=== PATIENT | male | born 1945 | race Caucasian/White ===

== ENCOUNTER → 2023-01-27 14:19 | Outpatient (REF) | payer MEDICARE, OTHER, SELFPAY | LOC: WOUND 14:19 | PROVIDERS: ATTENDING PHYSICIAN Surgery Plastic and Reconstructive Surgery; REFERRING PHYSICIAN Family Medicine | DX: L97.822 Non-pressure chronic ulcer of other part of left lower leg with fat layer exposed (principal); S81.812D Laceration without foreign body, left lower leg, subsequent encounter; X58.XXXD Exposure to other specified factors, subsequent encounter; Z79.01 Long term (current) use of anticoagulants | CPT/HCPCS: 97597; 97598; 99212 ==

== ENCOUNTER → 2023-04-14 15:23 | Outpatient (REF) | payer MEDICARE, OTHER, SELFPAY ==
[2023-04-14 16:36] LABS: % Basophils 0.5 % (0-2); % Eosinophils 1.4 % (0-6); % Immature Granulocytes 0.2 % (0-0.5); % Lymphocytes 28.9 % (20.5-51.1); % Monocytes 7.4 % (1.7-9.3); % Neutrophils 61.6 % (42.2-75.2); Absolute Eosinophils 0.1 10^3/uL (0-0.7); Absolute Lymphocytes 1.8 10^3/uL (1.2-3.4); Absolute Monocytes 0.5 10^3/uL (0.1-0.6); Absolute Neutrophils 3.9 10^3/uL (1.4-6.5); Hematocrit 35.4 % (39.0-52.0); Hemoglobin 11.4 g/dL (13.0-18.0); Mean Corp Hgb Conc. 32.2 g/dL (33.0-37.0); Mean Corpuscular Hgb 30.7 pg (27.0-31.0); Mean Corpuscular Volume 95.4 fL (80.0-94.0); Mean Platelet Volume 10.9 fL (7.4-10.4); Nucleated Red Blood Cells % 0 % (-); Platelet Count 182 10^3/uL (130-400); Red Blood Cell Count 3.71 10^6/uL (4.70-6.10); Red Cell Dist. Width 15.3 % (11.5-14.5); White Blood Cell Count 6.4 10^3/uL (4.8-10.8)
[2023-04-14 16:45] LABS: Erythrocyte Sed Rate 19 mm/hour (0-20)
[2023-04-14 16:47] LABS: ALT (SGPT) 21 U/L (0-50); AST (SGOT) 24 U/L (17-59); Albumin 3.7 g/dl (3.5-5.0); Alkaline Phosphatase 66 U/L (38-126); Blood Urea Nitrogen 24 mg/dl (9-20); Calcium 9.6 mg/dl (8.4-10.2); Carbon Dioxide 27 mmol/L (22-30); Chloride 101 mmol/L (98-107); Glucose 89 mg/dl (70-99); Potassium 4.7 mmol/L (3.5-5.1); Sodium 136 mmol/L (135-145); Total Bilirubin 0.6 mg/dl (0.2-1.3); Total Protein 6.1 g/dl (6.3-8.2); eGFR 51.77
[2023-04-14 16:56] LABS: Total Iron Binding Capacity 462 ug/dl (261-462)
[2023-04-14 17:17] LABS: Hepatitis B Surface Antigen Negative (Negative)
[2023-04-14 17:35] LABS: Hepatitis B Core Ab, Total Reactive (Negative); Hepatitis B Surface Antibody Negative
[2023-04-14 17:38] LABS: Vitamin B12 274 pg/ml (239-931)
[2023-04-16 22:22] LABS: Vitamin D 1,25 Dihydroxy 35.7 pg/mL (19.9-79.3)
== END ==
LOC: REG 15:23
PROVIDERS: ATTENDING PHYSICIAN Internal Medicine Gastroenterology; FAMILY PHYSICIAN Nurse Practitioner Adult Health
DX: K50.90 Crohn's disease, unspecified, without complications (principal)
CPT/HCPCS: 36415; 80053; 82607; 82652; 82728; 83550; 85025; 85652; 86140; 86704; 86706; 87340

== ENCOUNTER → 2023-08-18 16:11 | Outpatient (REF) | payer MEDICARE, OTHER, SELFPAY | LOC: RAD 16:11 | PROVIDERS: ATTENDING PHYSICIAN Internal Medicine Rheumatology; FAMILY PHYSICIAN Family Medicine | DX: M15.9 Polyosteoarthritis, unspecified (principal) | CPT/HCPCS: 73523 ==

== ENCOUNTER → 2023-08-24 12:33 | Outpatient (REF) | payer MEDICARE, OTHER, SELFPAY | LOC: WOUND 12:33 | PROVIDERS: ATTENDING PHYSICIAN Surgery; FAMILY PHYSICIAN Family Medicine | DX: L97.329 Non-pressure chronic ulcer of left ankle with unspecified severity (principal); N18.31 Chronic kidney disease, stage 3a; K50.90 Crohn's disease, unspecified, without complications; Z79.01 Long term (current) use of anticoagulants | CPT/HCPCS: 99213 ==

== ENCOUNTER → 2023-10-13 09:31 | Outpatient (REF) | payer MEDICARE, OTHER, SELFPAY ==
[2023-10-13 10:12] LABS: % Basophils 0.3 % (0-2); % Immature Granulocytes 0.3 % (0-0.5); % Lymphocytes 27.7 % (20.5-51.1); % Monocytes 8.2 % (1.7-9.3); % Neutrophils 62.5 % (42.2-75.2); Absolute Eosinophils 0.1 10^3/uL (0-0.7); Absolute Lymphocytes 2.4 10^3/uL (1.2-3.4); Absolute Monocytes 0.7 10^3/uL (0.1-0.6); Absolute Neutrophils 5.5 10^3/uL (1.4-6.5); Hematocrit 37.3 % (39.0-52.0); Hemoglobin 12.5 g/dL (13.0-18.0); Mean Corp Hgb Conc. 33.5 g/dL (33.0-37.0); Mean Corpuscular Volume 92.6 fL (80.0-94.0); Mean Platelet Volume 10.2 fL (7.4-10.4); Nucleated Red Blood Cells % 0 % (-); Platelet Count 188 10^3/uL (130-400); Red Blood Cell Count 4.03 10^6/uL (4.70-6.10); Red Cell Dist. Width 13.8 % (11.5-14.5); White Blood Cell Count 8.8 10^3/uL (4.8-10.8)
[2023-10-13 10:34] LABS: Protein/creatinine Ratio 0.1; Urine Protein 5 mg/dl
[2023-10-13 10:36] LABS: ALT (SGPT) 21 U/L (0-50); AST (SGOT) 24 U/L (17-59); Albumin 4.3 g/dl (3.5-5.0); Alkaline Phosphatase 67 U/L (38-126); Blood Urea Nitrogen 30 mg/dl (9-20); Calcium 10.3 mg/dl (8.4-10.2); Carbon Dioxide 23 mmol/L (22-30); Chloride 105 mmol/L (98-107); Direct Bilirubin 0.2 mg/dl (0.0-0.4); Glucose 105 mg/dl (70-99); Iron 58 ug/dl (49-181); Phosphorus 3.8 mg/dl (2.5-4.5); Potassium 4.8 mmol/L (3.5-5.1); Sodium 137 mmol/L (135-145); Total Bilirubin 0.4 mg/dl (0.2-1.3); Total Protein 6.6 g/dl (6.3-8.2); eGFR 56.58
[2023-10-13 10:40] LABS: C-Reactive Protein < 5.00 mg/L (0.0-10.00)
[2023-10-13 10:46] LABS: Percent Saturation 11 % (20-50); Total Iron Binding Capacity 484 ug/dl (261-462)
[2023-10-13 10:52] LABS: Microalbumin, Random Urine <0.6 mg/dl (0.6-1.7)
[2023-10-13 11:11] LABS: Erythrocyte Sed Rate 18 mm/hour (0-20)
[2023-10-13 11:16] LABS: Ferritin 19.4 ng/ml (17.9-464.0)
[2023-10-13 18:10] LABS: Intact PTH 52.4 pg/ml (13.6-85.8)
[2023-10-15 15:24] LABS: Quantiferon Mitogen minus NIL 9.92 IU/mL; Quantiferon NIL 0.08 IU/mL; Quantiferon Plus TB2 minus NIL 0.02 IU/mL (<=0.34); Quantiferon TB Gold Plus Negative (Negative)
== END ==
LOC: REG 09:31
PROVIDERS: ATTENDING PHYSICIAN Internal Medicine Gastroenterology; FAMILY PHYSICIAN Family Medicine
DX: K50.812 Crohn's disease of both small and large intestine with intestinal obstruction (principal); N18.31 Chronic kidney disease, stage 3a
CPT/HCPCS: 36415; 80053; 82043; 82248; 82570; 82728; 83540; 83550; 83970; 84100; 84156; 85025; 85652; 86140; 86480

== ENCOUNTER → 2023-11-09 15:54 | Outpatient (REF) | payer MEDICARE, OTHER, SELFPAY ==
[2023-11-09 14:40] LABS: % Basophils 0.7 % (0-2); % Eosinophils 1.4 % (0-6); % Immature Granulocytes 0.4 % (0-0.5); % Lymphocytes 30.9 % (20.5-51.1); % Monocytes 8.8 % (1.7-9.3); % Neutrophils 57.8 % (42.2-75.2); Absolute Eosinophils 0.1 10^3/uL (0-0.7); Absolute Lymphocytes 1.8 10^3/uL (1.2-3.4); Absolute Monocytes 0.5 10^3/uL (0.1-0.6); Absolute Neutrophils 3.3 10^3/uL (1.4-6.5); Hematocrit 33.6 % (39.0-52.0); Hemoglobin 11.2 g/dL (13.0-18.0); Mean Corp Hgb Conc. 33.3 g/dL (33.0-37.0); Mean Corpuscular Hgb 30.2 pg (27.0-31.0); Mean Corpuscular Volume 90.6 fL (80.0-94.0); Mean Platelet Volume 9.5 fL (7.4-10.4); Nucleated Red Blood Cells % 0 % (-); Platelet Count 172 10^3/uL (130-400); Red Blood Cell Count 3.71 10^6/uL (4.70-6.10); Red Cell Dist. Width 13.8 % (11.5-14.5); White Blood Cell Count 5.7 10^3/uL (4.8-10.8)
== END ==
LOC: OIDL 15:54
PROVIDERS: ATTENDING PHYSICIAN Nurse Practitioner Adult Health
DX: I82.431 Acute embolism and thrombosis of right popliteal vein (principal)
CPT/HCPCS: 85025

== ENCOUNTER → 2023-12-21 10:29 | Outpatient (REF) | payer MEDICARE, OTHER, SELFPAY ==
[2023-12-21 11:16] LABS: % Basophils 0.7 % (0-2); % Eosinophils 1.9 % (0-6); % Immature Granulocytes 0.3 % (0-0.5); % Lymphocytes 32.1 % (20.5-51.1); % Monocytes 7.4 % (1.7-9.3); % Neutrophils 57.6 % (42.2-75.2); Absolute Basophils 0.1 10^3/uL (0-0.2); Absolute Eosinophils 0.1 10^3/uL (0-0.7); Absolute Lymphocytes 2.3 10^3/uL (1.2-3.4); Absolute Monocytes 0.5 10^3/uL (0.1-0.6); Absolute Neutrophils 4.1 10^3/uL (1.4-6.5); Hematocrit 39.2 % (39.0-52.0); Mean Corp Hgb Conc. 33.2 g/dL (33.0-37.0); Mean Corpuscular Volume 93.6 fL (80.0-94.0); Mean Platelet Volume 10.1 fL (7.4-10.4); Nucleated Red Blood Cells % 0 % (-); Platelet Count 175 10^3/uL (130-400); Red Blood Cell Count 4.19 10^6/uL (4.70-6.10); Red Cell Dist. Width 14.5 % (11.5-14.5)
[2023-12-21 12:01] LABS: Iron 124 ug/dl (49-181)
[2023-12-21 12:10] LABS: Percent Saturation 33 % (20-50); Total Iron Binding Capacity 375 ug/dl (261-462)
[2023-12-21 12:36] LABS: Ferritin 91.6 ng/ml (17.9-464.0)
== END ==
LOC: REG 10:29
PROVIDERS: ATTENDING PHYSICIAN Internal Medicine Hematology & Oncology; FAMILY PHYSICIAN Family Medicine
DX: I82.431 Acute embolism and thrombosis of right popliteal vein (principal); I82.511 Chronic embolism and thrombosis of right femoral vein; D50.9 Iron deficiency anemia, unspecified
CPT/HCPCS: 36415; 82728; 83540; 83550; 85025

== ENCOUNTER → 2024-01-25 10:39 | Outpatient (REF) | payer MEDICARE, OTHER, SELFPAY ==
[2024-01-25 12:11] LABS: % Basophils 0.4 % (0-2); % Immature Granulocytes 0.1 % (0-0.5); % Lymphocytes 31.2 % (20.5-51.1); % Monocytes 7.8 % (1.7-9.3); % Neutrophils 59.5 % (42.2-75.2); Absolute Eosinophils 0.1 10^3/uL (0-0.7); Absolute Lymphocytes 2.2 10^3/uL (1.2-3.4); Absolute Monocytes 0.5 10^3/uL (0.1-0.6); Absolute Neutrophils 4.1 10^3/uL (1.4-6.5); Hematocrit 41.5 % (39.0-52.0); Hemoglobin 13.6 g/dL (13.0-18.0); Mean Corp Hgb Conc. 32.8 g/dL (33.0-37.0); Mean Corpuscular Hgb 32.2 pg (27.0-31.0); Mean Corpuscular Volume 98.1 fL (80.0-94.0); Mean Platelet Volume 10.2 fL (7.4-10.4); Nucleated Red Blood Cells % 0 % (-); Platelet Count 173 10^3/uL (130-400); Red Blood Cell Count 4.23 10^6/uL (4.70-6.10); Red Cell Dist. Width 14.2 % (11.5-14.5)
[2024-01-25 12:50] LABS: Erythrocyte Sed Rate 16 mm/hour (0-20)
[2024-01-25 13:19] LABS: Ferritin 80.8 ng/ml (17.9-464.0)
[2024-01-25 13:33] LABS: Vitamin B12 235 pg/ml (239-931)
[2024-01-25 18:23] LABS: ALT (SGPT) 22 U/L (0-50); AST (SGOT) 23 U/L (17-59); Albumin 4.5 g/dl (3.5-5.0); Alkaline Phosphatase 75 U/L (38-126); Blood Urea Nitrogen 35 mg/dl (9-20); Calcium 9.9 mg/dl (8.4-10.2); Carbon Dioxide 22 mmol/L (22-30); Chloride 105 mmol/L (98-107); Direct Bilirubin 0.2 mg/dl (0.0-0.4); Glucose 102 mg/dl (70-99); Iron 79 ug/dl (49-181); Potassium 4.7 mmol/L (3.5-5.1); Sodium 142 mmol/L (135-145); Total Bilirubin 0.5 mg/dl (0.2-1.3); Total Protein 7.1 g/dl (6.3-8.2); eGFR 47.65
[2024-01-25 18:33] LABS: Percent Saturation 18 % (20-50); Total Iron Binding Capacity 428 ug/dl (261-462)
== END ==
LOC: REG 10:39
PROVIDERS: ATTENDING PHYSICIAN Internal Medicine Gastroenterology; FAMILY PHYSICIAN Family Medicine
DX: K50.812 Crohn's disease of both small and large intestine with intestinal obstruction (principal); K21.9 Gastro-esophageal reflux disease without esophagitis; D51.9 Vitamin B12 deficiency anemia, unspecified
CPT/HCPCS: 36415; 80053; 82248; 82607; 82728; 83540; 83550; 85025; 85652; 86140

== ENCOUNTER → 2024-05-19 13:48 | Outpatient (REF) | payer MEDICARE, OTHER, SELFPAY ==
[2024-05-19 14:41] LABS: % Basophils 0.5 % (0-2); % Eosinophils 2.3 % (0-6); % Immature Granulocytes 0.6 % (0-0.5); % Lymphocytes 24.6 % (20.5-51.1); % Monocytes 7.3 % (1.7-9.3); % Neutrophils 64.7 % (42.2-75.2); Absolute Eosinophils 0.1 10^3/uL (0-0.7); Absolute Lymphocytes 1.5 10^3/uL (1.2-3.4); Absolute Monocytes 0.5 10^3/uL (0.1-0.6); Hematocrit 39.4 % (39.0-52.0); Hemoglobin 12.8 g/dL (13.0-18.0); Mean Corp Hgb Conc. 32.5 g/dL (33.0-37.0); Mean Corpuscular Hgb 31.2 pg (27.0-31.0); Mean Corpuscular Volume 96.1 fL (80.0-94.0); Mean Platelet Volume 9.9 fL (7.4-10.4); Nucleated Red Blood Cells % 0 % (-); Platelet Count 176 10^3/uL (130-400); Red Cell Dist. Width 13.3 % (11.5-14.5); White Blood Cell Count 6.2 10^3/uL (4.8-10.8)
[2024-05-19 14:52] LABS: Erythrocyte Sed Rate 9 mm/hour (0-20)
[2024-05-19 15:05] LABS: ALT (SGPT) 17 U/L (0-50); AST (SGOT) 21 U/L (17-59); Albumin 3.8 g/dl (3.5-5.0); Alkaline Phosphatase 72 U/L (38-126); Blood Urea Nitrogen 19 mg/dl (9-20); Carbon Dioxide 28 mmol/L (22-30); Chloride 108 mmol/L (98-107); Direct Bilirubin 0.2 mg/dl (0.0-0.4); Glucose 93 mg/dl (70-99); Iron 132 ug/dl (49-181); Potassium 5.1 mmol/L (3.5-5.1); Sodium 141 mmol/L (135-145); Total Bilirubin 0.5 mg/dl (0.2-1.3); Total Protein 6.4 g/dl (6.3-8.2); eGFR 47.36
[2024-05-19 15:15] LABS: Percent Saturation 30 % (20-50); Total Iron Binding Capacity 439 ug/dl (261-462)
[2024-05-19 15:45] LABS: Ferritin 24.7 ng/ml (17.9-464.0)
== END ==
LOC: REG 13:48
PROVIDERS: ATTENDING PHYSICIAN Internal Medicine Gastroenterology; FAMILY PHYSICIAN Family Medicine
DX: K50.812 Crohn's disease of both small and large intestine with intestinal obstruction (principal)
CPT/HCPCS: 36415; 80053; 82248; 82728; 83540; 83550; 85025; 85652; 86140

== ENCOUNTER 2024-08-23 19:23 | Emergency (ER) | payer MEDICARE, OTHER, SELFPAY ==
[2024-08-23 19:25] VITALS: BP 163/90
--- NOTE | 2024-08-23 21:49 | ED.GENMED ---
History of Present Illness
General
Chief Complaint: Head Injury
Source: patient
Exam Limitations: none
Time Seen by Provider: 08/23/24 21:33
History of Present Illness
History of Present Illness:
79yoM with a history of DVT on Xarelto, hypertension, and Crohn's disease presenting for evaluation after a fall this evening. Patient slipped on metal steps and fell. He hit his head against the wall. There was no loss of consciousness. He
currently reports some neck pain. He received multiple skin tears during the fall. He denies any dizziness, vomiting, chest pain, abdominal pain, back pain. Tetanus shot is reported to be up to date.
Past History
Past History
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
Crohn's disease status post small bowel obstruction, stricture, colon resection) and Other (DVT right lower extremity January 2018, treated with 6 month course of Xarelto)
ED Past Surgical History: Other (Crohn's disease status post small bowel obstruction due to Crohn's ileitis, transverse colonic stricture, ileal resection, right hemicolectomy in 1994, cystoscopy with stone extraction, bilateral cataract surgery,
pacemaker implant secondary to sick sinus syndrome in 2005)
Social History
Tobacco: Non-smoker
Alcohol: Occasional
Drug: None
Personal:
Living: with family
Employment: Retired
Family History
Family History: Other (Father with gastric cancer at 75-year-old, mother at 7 years old with CVA)
Phy Exam
General Physical Exam
General Presentation: well appearing and no apparent distress
General Skin: warm and dry
General Habitus: normal
General Mental: alert
ENT Exam
ENT Exam: other (Small abrasion to R forehead. No other external signs of head trauma. +Tenderness to cervical region. No step-offs and ROM intact.)
Pulmonary Exam
Pulmonary Exam: lungs clear, no respiratory distress, no rales, chest non tender, no crackles, no rhonchi and no wheezing
Gastrointestinal Exam
Gastrointestinal Exam: non tender, soft and non distended
Neurological Exam
Neurological Exam: alert
Abi Coma Scale
Eye Opening: Spontaneous
Verbal Response: Oriented
Motor Response: Obeys Commands
GCS Total Score: 15
Skin Exam
Skin Exam: warm/dry and other (Multiple skin tears noted to extremities. Two largest are in R palm and R lower leg. R lower leg wound is gaping.)
Psychiatric Exam
Psychiatric Exam: normal mood/affect
Course
Orders/Labs/Results
Orders:
Orders
08/23/24 19:27
CT Head W/o Iv Contrast Urgent
Comment:
Reason For Exam: fall +thinners head strike
08/23/24 21:45
CT Cervical Spine W/o Iv Contr Urgent
Comment:
Reason For Exam: fall, neck pain
Vital Signs
Initial and Last Documented VS:
Initial Vital Signs
Temp Pulse Resp BP Pulse Ox
97.8 F 96 15 163/90 100
08/23/24 19:25 08/23/24 19:25 08/23/24 19:25 08/23/24 19:25 08/23/24 19:25
Last Documented Vital Signs
Temp Pulse Resp BP Pulse Ox
97.8 F 67 15 164/82 100
08/23/24 19:25 08/23/24 23:26 08/23/24 19:25 08/23/24 23:26 08/23/24 21:52
Procedures
Laceration Closure
Right Lower Leg:
Status of Wound: clean
Size of Wound in cm: 6
Description of Wound Edges: flap-well vascularized
Preparation: cleaned with saline
Anesthesia: 1% Lidocaine with epi
Wound exploration: explored to base- no FB
Type of Closure: single layer closure
Skin Closure Material: 4-0 nylon
Number of sutures: 6
Additional information:
6 nylon sutures applied to skin tear. Lateral aspect of wound unable to be approximated and steri-strips applied.
MDM/Problems Addressed
Differential Diagnosis Includes:
79yoM here after a mechanical fall. +Head strike on Xarelto. No LOC. Also sustained multiple skin tears. He is hypertensive with otherwise stable vitals. He is awake, alert, with a GCS of 15. Differential diagnosis includes: closed head injury,
fracture, intracranial hemorrhage
CT head obtained in triage is normal. CT cervical spine added which is also negative. R lower leg skin tear irrigated and repaired as above with sutures and steri-strips. Steri-strips also applied to skin tear on R thenar eminence. Advised f/u with
wound care and ED return precautions discussed. He was discharged in stable condition.
*Pulse Oximetry
SaO2: 100
Oxygen Mode of Delivery: Room air
Patient hypoxic: no (100)
*Critical Care Note
Total Time (30-74mins, 75-104mins- exclusive of procedures): Not Applicable
ED Attending Note
-
Portions of this chart may have been created with voice recognition software.� Occasional wrong word or��sound alike� substitutions may have occurred due to the inherent limitations of voice recognition software.
Discharge Plan
Departure
Patient Disposition: Home (Routine Discharge)
Date of Disposition: 08/23/24
Time of Disposition: 23:00
Patient with high blood pressure during this ER visit?: Yes
Discharge Problem:
Fall (on) (from) other stairs and steps, initial encounter, Closed head injury, Skin tear of right hand without complication, Laceration of right lower extremity
Instructions: Head Injury in Adults (DC), Laceration Repair With Stitches (DC)
Prescriptions:
No Action
mesalamine [Pentasa] 500 MG capsule, extended release
400 mg PO TID
losartan 50 MG tablet
50 mg PO DAILY
cholecalciferol (vitamin D3) 1,000 UNIT capsule
2,000 units PO DAILY
finasteride 5 MG tablet
5 mg PO DAILY
Entyvio 300 MG/5 ML recon soln
300 mg IV .[id number]
trospium 20 MG tablet
20 mg PO BID
allopurinol 100 MG tablet
200 mg PO DAILY
ascorbic acid (vitamin C) [Vitamin C] 500 MG tablet
500 mg PO DAILY
Xarelto 20 MG tablet
10 mg PO QPM
sodium bicarbonate 650 MG tablet
650 mg PO BID
cyanocobalamin (vitamin B-12) 1,000 MCG/ML solution
1,000 mcg IJ MONTHLY
cholestyramine-aspartame [Prevalite] 4 G/PKT powder in packet
1 packet PO HS
omeprazole 20 MG tablet,delayed release (DR/EC)
20 mg PO DAILY
ferrous sulfate [iron] 325 MG tablet
325 mg PO DAILY
acetaminophen 325 mg Tablet
650 mg PO Q6HPRN PRN (Reason: mild pain/ fever>100.5F) 14 Days Qty: 60 0RF
hydrocodone-acetaminophen 5-325 mg tablet
1 tab PO Q4H PRN (Reason: moderate pain) Qty: 20 0RF
methylprednisolone [Medrol (Bakari)] 4 mg tablets,dose pack
See Rx Instructions .ROUTE .COMPLEX Qty: 21 0RF
Rx Instructions:
orally per package directions
cephalexin 500 mg capsule
500 mg PO QID 7 Days Qty: 28 0RF
Referrals:
[facility] [Outside]
Jaylen Fisher DO [Family Provider, Family Practice]
Activity Restrictions/Additional Instructions:
Keep wounds clean and dry. Change dressings daily.
Please follow-up with wound care. Sutures should be removed in 10 to 14 days. Return to the ER with any signs of infection.
Interventions
Interventions:
*Risk Screen - Suicide Last Done: 08/23/24 19:25
*General Assessment Last Done: 08/23/24 19:25
*Neglect/Abuse Screening Last Done: 08/23/24 23:27
*Nursing Disposition Last Done: 08/23/24 23:27
ED- Neurological Assessment Last Done: 08/23/24 21:22
ED-Skin Assessment Last Done: 08/23/24 21:22
Discharge Date and Time
Discharge Date/Time: 08/23/24 23:31
Print Language: [place]
[2024-08-23 23:26] VITALS: BP 164/82
== END 2024-08-23 23:31 | disposition home or self-care (01) ==
LOC: EMR 19:23
PROVIDERS: EMERGENCY PHYSICIAN Emergency Medicine; FAMILY PHYSICIAN Family Medicine
DX: S09.90XA Unspecified injury of head, initial encounter (principal); S61.411A Laceration without foreign body of right hand, initial encounter; S81.811A Laceration without foreign body, right lower leg, initial encounter; M54.2 Cervicalgia; S00.81XA Abrasion of other part of head, initial encounter; W10.8XXA Fall (on) (from) other stairs and steps, initial encounter; R03.0 Elevated blood-pressure reading, without diagnosis of hypertension; I12.9 Hypertensive chronic kidney disease with stage 1 through stage 4 chronic kidney disease, or unspecified chronic kidney disease; N18.2 Chronic kidney disease, stage 2 (mild); M48.00 Spinal stenosis, site unspecified; M19.90 Unspecified osteoarthritis, unspecified site; M10.9 Gout, unspecified; K50.90 Crohn's disease, unspecified, without complications; E78.00 Pure hypercholesterolemia, unspecified; Z95.0 Presence of cardiac pacemaker; Z86.718 Personal history of other venous thrombosis and embolism; Z87.442 Personal history of urinary calculi; Z79.01 Long term (current) use of anticoagulants; Z98.0 Intestinal bypass and anastomosis status; Z88.8 Allergy status to other drugs, medicaments and biological substances
CPT/HCPCS: 99284; 12002; 70450; 72125

== ENCOUNTER → 2024-09-16 13:59 | Outpatient (REF) | payer MEDICARE, OTHER, SELFPAY ==
[2024-09-16 15:24] LABS: Urine Character Clear (Clear)
[2024-09-16 15:32] LABS: Hematocrit 38.1 % (39.0-52.0); Hemoglobin 12.7 g/dL (13.0-18.0); Mean Corp Hgb Conc. 33.3 g/dL (33.0-37.0); Mean Corpuscular Volume 95.5 fL (80.0-94.0); Nucleated Red Blood Cells % 0 % (-); Platelet Count 168 10^3/uL (130-400); Red Cell Dist. Width 14.2 % (11.5-14.5)
[2024-09-16 15:50] LABS: ALT (SGPT) 25 U/L (0-50); AST (SGOT) 22 U/L (17-59); Albumin 4.1 g/dl (3.5-5.0); Alkaline Phosphatase 58 U/L (38-126); Blood Urea Nitrogen 27 mg/dl (9-20); Calcium 9.9 mg/dl (8.4-10.2); Carbon Dioxide 24 mmol/L (22-30); Chloride 108 mmol/L (98-107); Glucose 94 mg/dl (70-99); Potassium 4.2 mmol/L (3.5-5.1); Sodium 138 mmol/L (135-145); Total Protein 6.6 g/dl (6.3-8.2); Uric Acid 5.4 mg/dl (3.5-8.5); eGFR 56.23
[2024-09-16 15:54] LABS: C-Reactive Protein < 5.00 mg/L (0.0-10.00)
[2024-09-16 15:59] LABS: Total Iron Binding Capacity 451 ug/dl (261-462)
[2024-09-16 16:30] LABS: Ferritin 39.5 ng/ml (17.9-464.0)
== END ==
LOC: REG 13:59
PROVIDERS: ATTENDING PHYSICIAN Internal Medicine Gastroenterology; FAMILY PHYSICIAN Nurse Practitioner Adult Health; REFERRING PHYSICIAN Specialist
DX: K50.812 Crohn's disease of both small and large intestine with intestinal obstruction (principal); N18.31 Chronic kidney disease, stage 3a
CPT/HCPCS: 36415; 80053; 81003; 82248; 82570; 82728; 83550; 83970; 84100; 84156; 84550; 85025; 85652; 86140

== ENCOUNTER → 2024-12-30 16:40 | Outpatient (REF) | payer MEDICARE, OTHER, SELFPAY ==
[2024-12-30 18:04] LABS: Blood Urea Nitrogen 24 mg/dl (9-20); Calcium 9.7 mg/dl (8.4-10.2); Carbon Dioxide 22 mmol/L (22-30); Chloride 107 mmol/L (98-107); Glucose 86 mg/dl (70-99); Iron 74 ug/dl (49-181); Potassium 4.3 mmol/L (3.5-5.1); Sodium 137 mmol/L (135-145); eGFR 56.23
[2024-12-30 18:06] LABS: C-Reactive Protein < 5.00 mg/L (0.0-10.00)
[2024-12-30 18:18] LABS: Hematocrit 38.9 % (39.0-52.0); Hemoglobin 13.1 g/dL (13.0-18.0); Mean Corp Hgb Conc. 33.7 g/dL (33.0-37.0); Mean Corpuscular Volume 91.3 fL (80.0-94.0); Nucleated Red Blood Cells % 0 % (-); Platelet Count 161 10^3/uL (130-400); Red Cell Dist. Width 13.7 % (11.5-14.5)
[2024-12-30 19:00] LABS: Ferritin 41.5 ng/ml (17.9-464.0); Total Iron Binding Capacity 496 ug/dl (261-462)
== END ==
LOC: REG 16:40
PROVIDERS: ATTENDING PHYSICIAN Internal Medicine Gastroenterology; FAMILY PHYSICIAN Family Medicine; OTHER PHYSICIAN Nurse Practitioner Adult Health
DX: K50.812 Crohn's disease of both small and large intestine with intestinal obstruction (principal)
CPT/HCPCS: 36415; 80048; 82728; 83540; 83550; 85025; 85652; 86140